=== PATIENT | male | born 1975 | race Caucasian/White ===

== ENCOUNTER 2017-03-19 09:48 | Emergency (ER) | payer OTHER ==
--- NOTE | ~2017-03-19 | CT4 ---
[facility] A Service [facility] RADIOLOGY TEXT RESULTS PATIENT: LAURI SMITH LOCATION: SED : 79 UNIT #: [id number] AGE: [address]: Amari Garcia MD SEX: M ORDER DR: [id number] [place] [id number] E MR#: [id number] Acc #: [id number] NAME: LAURI SMITH : 1975 SEX: M STUDY DATE/TIME: 03/19/2017 11:56 UNIT: SED ROOM: STUDY DESCRIPTION: CT Abd and Pelv Wo Cont Attending Physician: Amari Garcia M.D. Ordering Physician: Amari Garcia M.D. Primary Care Physician: Primary Care Physician No MEDICAL IMAGING REPORT This report is preliminary unless electronic signature is present. EXAM CT abdomen and pelvis without contrast INDICATION Vomiting for 3 days with pain in his lower back. TECHNIQUE Axial 5 mm images were obtained through the abdomen and pelvis without IV or oral contrast. This CT examination was performed with one or more of the following radiation dose reduction techniques: automatic exposure control, adjustment of mA and/or kV according to patient size, and iterative reconstruction. FINDINGS The liver, gallbladder, spleen, pancreas, adrenal glands and kidneys are normal. No urinary stones are identified. The aorta is normal in size. The bowel appears normal including the appendix. The bladder and prostate gland are normal. The bones are unremarkable. IMPRESSION 1. Normal appendix. 2. Normal CT abdomen and pelvis without contrast. Dictated by... Jose Kennedy M.D. THIS IS AN ELECTRONICALLY VERIFIED REPORT Jose Kennedy M.D. at 03/19/2017 3:32 PM FEL/mjs [facility] A Service of [facility] RADIOLOGY TEXT RESULTS PATIENT: LAURI SMITH LOCATION: SED : 77 UNIT #: [id number] AGE: [address]: Amari Garcia MD SEX: M ORDER DR: TD: 03/19/2017 13:56 JOB #: [id number] MEDICAL IMAGING REPORT Page 1 of 1
[~2017-03-19 09:48] MED LIST: FLEXERIL10 MG PO; ULTRAM PO
[2017-03-19 10:23] LABS: BASOPHIL% 0.2 % (0-2.5); HEMATOCRIT 55.8 % (38.0-50.0); LYMPHOCYTE# 0.9 X10e3 (1.0-3.5); LYMPHOCYTE% 4.3 % (17.0-45.0); MEAN CELL VOLUME 89.3 FL (83-96); MEAN CORPUSCULAR HEMOGLOBIN 30.3 PG (28-34); MONOCYTE# 0.7 X10e3 (0-1.0); MONOCYTE% 3.4 % (3.0-12.0); NEUTROPHIL# 18.4 X10e3 (1.5-7.1); NEUTROPHIL% 92.1 % (40-75); PLATELET COUNT 227 X10e3 (140-420); RED BLOOD COUNT 6.25 X10e (3.90-5.60); WHITE BLOOD COUNT 19.9 X10e3 (4.0-10.5)
[2017-03-19 10:26] LABS: DIFF IND NO
[2017-03-19 10:53] LABS: ACETAMINOPHEN <10 ug/mL; ALBUMIN SERUM 5.1 g/dL (3.5-5.0); ALCOHOL BLOOD <5 mg/dL (0); ALKALINE PHOSPHATASE 124 U/L (32-92); ALT (SGPT) 36 U/L (10-40); AST (SGOT) 32 U/L (10-42); BILIRUBIN, DIRECT 0.1 mg/dL (0.0-0.2); BILIRUBIN,INDIRECT 0.8 mg/dL (0.0-0.9); BILIRUBIN,TOTAL 0.9 mg/dL (0.2-2.0); BLOOD UREA NITROGEN 26 mg/dL (9-23); BUN/CREATININE RATIO 16.25; CALCIUM SERUM 9.8 mg/dL (8.4-10.2); CARBON DIOXIDE 37 mmol/L (22-31); CHLORIDE 84 mmol/L (100-111); CREATININE SERUM 1.6 mg/dL (0.6-1.4); GLOM FILT RATE Estimated 53.5 mL/min (>60); GLUCOSE FASTING 209 mg/dL (70-110); LIPASE 22 U/L (22-51); POTASSIUM 3.2 mmol/L (3.5-5.1); PROTEIN TOTAL SERUM 9.5 g/dL (6.0-8.3); SALICYLATE <4.0 mg/dL; SODIUM 138 mmol/L (135-145)
[2017-03-19 11:10] LABS: ARTERIAL BLD GAS O2 SATURATION 86.9 % (90.0-100.0); ARTERIAL BLOOD GAS CARBOXY HB 2.6 %sat (0.0-9.0); ARTERIAL BLOOD GAS HCO3 37.4 mmol/L
[2017-03-19 11:11] LABS: ARTERIAL BLOOD GAS ALLEN TEST N; ARTERIAL DRAW? NO
[2017-03-19 13:26] LABS: URINE APPEARANCE CLEAR; URINE BLOOD NEG (NEG); URINE COLOR YELLOW; URINE GLUCOSE NEG (NORM); URINE KETONE NEG (NEG); URINE LEUKOCYTE ESTERASE NEG (NEG); URINE NITRATE NEG (NEG); URINE PROTEIN 2+ (NEG); URINE SOURCE CLEAN CATCH
[2017-03-19 13:28] LABS: MICRO INDICATED? YES; URINE BILIRUBIN NEG (NEG)
[2017-03-19 13:38] LABS: AMPHETAMINE NEG (NEG); BARBITURATES NEG (NEG); BENZODIAZEPINES NEG (NEG); COCAINE NEG (NEG); MARIJUANA POS (NEG); OPIATES POS (NEG); TRICYCLIC ANTIDEPRESSANTS NEG (NEG); U METHADONE NEG (NEG)
[2017-03-19 13:47] LABS: URINE BACTERIA NEG (NEG); URINE MUCUS PRESENT; URINE RBC 0-2 /[HPF] (0-2); URINE SQUAMOUS EPITHELIAL CELL FEW /[HPF]; URINE WBC NEG /[HPF] (0-5)
== END 2017-03-19 13:48 | disposition home or self-care (01) ==
LOC: SED 09:48
PROVIDERS: Emergency Medicine
DX: E86.0 Dehydration (principal); E87.6 Hypokalemia; F17.200 Nicotine dependence, unspecified, uncomplicated; F19.10 Other psychoactive substance abuse, uncomplicated
CPT/HCPCS: 36415; 74176; 80048; 80076; 80307; 81003; 82803; 83690; 85025; 96374; 96375; 99284; C9113; G0480; J1885; J2270; J2405; J2550